=== PATIENT | female | born 1945 | race Caucasian/White ===

== ENCOUNTER 2016-11-18 20:02 | Inpatient (IN) | payer MEDICARE, BC ==
[~2016-11-18] VITALS: Ht 170.2 cm; Wt 86.7 kg
--- NOTE | ~2016-11-18 | OR ---
ADMIT: 11/18/2016 RM/LOC: 509 [id number] [id number] [address] [address] Earnest PRIEST [address] [address] [place] [address] Operative/Delivery Room Report SEX: F AGE: 71 : 1945 SURGERY DATE: 11/19/2016 SURGEON: Nayeli Nesbitt MD PREOPERATIVE DIAGNOSIS: Comminuted peritrochanteric right hip fracture. POSTOPERATIVE DIAGNOSIS: Comminuted peritrochanteric right hip fracture. PROCEDURE: Open reduction, internal fixation, right comminuted peritrochanteric hip fracture with long trochanteric femoral nail. ASSISTED BY: YNES Mann ANESTHESIA: General. ESTIMATED BLOOD LOSS: 250 mL. SPECIMEN: None. COMPLICATIONS: None. IMPLANT: Synthes trochanteric femoral nail 12 x 380 mm x 130 degree nail with a 110 mm helical blade and a 54 mm distal locking screw. DESCRIPTION OF PROCEDURE: This patient was brought to the operating room. After a satisfactory level anesthesia was achieved, she was positioned over the fracture table in the supine position. All bony prominences were well padded. Right lower extremity was placed in traction, and the fracture provisionally reduced using C-arm image intensifier. The patient had markedly comminuted fracture with the entire greater trochanter comminuted. There was a large posterior medial fragment off and although lined up well on lateral, the AP demonstrated some offset. The extremity was then prepped and draped in the usual sterile fashion. My usual incision above the greater trochanter was made little longer in order to help openly reduce the fracture. A guidewire was placed through the comminuted trochanter. The trochanteric area reamed and then a flexible guidewire was placed distally. I reamed up to a 13.5 mm and cut cortex at 13 mm and 13.5 mm, but not before that. A 380 mm nail was chosen and in order to keep the fracture reduced, I had to use a curved Crego on the calcar medially pulling the calcar to the distal fragment and holding the fracture reduced. With this held reduced, I then made a 2 cm incision for ADMIT: 11/18/2016 RM/LOC: 509 [facility] MR#: [id number] [address] [address] [address]ST [address] [place] [address] Operative/Delivery Room Report SEX: F AGE: 71 : 1945 the helical blade. I placed a guidewire up trying to keep neutral on both AP and lateral, and then reamed the lateral cortex. Then, used the step drill to ream the femoral head and neck. I seated a 110 mm helical blade and locked it proximally. This gave us a very good reduction of the proximal femur despite its marked comminution. I then used a single locking screw distally in the dynamic slot placing it most distal to facilitate compression at a later date. I confirmed position of the screw on both AP and lateral C-arm images. At this point, all wounds were irrigated. The tensor fascia was closed with interrupted #1 Vicryl. The subcutaneous tissue was fairly deep and was closed with multiple layers of 2-0 Vicryl and then the skin with naga. Sterile dressings were applied each of the three wounds and at this point, she was transferred from the operative suite in stable condition. Nayeli Nesbitt MD/ juan JOB #: [id number] CC: Tyree Daugherty, Attending Physician Tyree Daugherty, Family Physician
--- NOTE | 2016-11-21 11:42 | CO ---
ADMIT: 11/18/2016 RM/LOC: 509 [facility] MR#: [id number] [address] [address] [address] [place] [address] Consultation Report SEX: F AGE: 71 : 1945 Corrected: 11/21/2016 1045 DATE OF CONSULTATION: 11/19/2016 ATTENDING PHYSICIAN: Tyree Daugherty CONSULTING PHYSICIAN: Nayeli Nesbitt MD CHIEF COMPLAINT: Right hip pain. HISTORY: This 71-year-old lady states that she fell on her right hip as she reached for the door handle on her pickup truck and fell directly on the hip. She was brought to the emergency room where radiographs show she has a comminuted intertrochanteric right hip fracture. PAST MEDICAL HISTORY: She says she has had a breast cancer in the past. Most recent DEXA scan showed a -1 standard deviation after her treatment for her osteoporosis. Prior orthopedic history demonstrates that she had a fracture of the right proximal tibia that was treated in [place]. SOCIAL HISTORY: The patient is from [place], [place]. She is . Her accompanies her today. REVIEW OF SYSTEMS: No current respiratory, cardiac, GI, or symptoms. PHYSICAL EXAMINATION: This patient's right lower extremity is shortened and externally rotated. She has good neurocirculatory function. DIAGNOSTIC DATA: Radiographs show comminuted intertrochanteric hip fracture. IMPRESSION: Comminuted intertrochanteric hip fracture. RECOMMENDATIONS: Trochanteric femoral nailing right hip. Risks, benefits, and alternatives as well as potential complications were discussed. Nayeli Nesbitt MD/ juan JOB #: [id number] CC: Tyree B Brosz, Attending Physician Tyree Daugherty, Family Physician Corrected: 11/21/2016 1045
--- NOTE | 2016-11-22 19:09 | ER ---
ADMIT: 11/18/2016 RM/LOC: [address] [facility] MR#: [id number] [address] [address] Earnest PRIEST [address] [address] [place] [address] Emergency Room Report SEX: F AGE: 71 : 1945 DATE: 11/18/2016 HISTORY OF PRESENT ILLNESS: The patient is a 71-year-old female, who came from [place] and came with a right hip pain. The patient states today, she was walking around the pickup, and for some unknown reason, she fell on the right side and could not stand up because of the right hip pain. The patient states she did not hit the head and she had no other pains in the neck or head or other parts of the body, and for some unknown reason, the patient was turning around the pickup and fell on the right side and could not stand up. PHYSICAL EXAMINATION: HEAD AND NECK: There are no signs of trauma. VITAL SIGNS: The patient has stable vitals and open airways. GENERAL: Alert and oriented to person, place, and time. SPINE: There is no spinal midline tenderness or step-offs. NECK: Trachea is midline. CHEST: Clear bilateral. HEART: Normal heart sounds. ABDOMEN: Soft. PELVIS: Stable. HIPS: The patient keeps the right hip in the external rotation. EXTREMITIES: Visually, it looks like the right lower extremity is slightly shorter than the left lower extremity. NEUROLOGIC: The patient had normal peripheral pulses. Normal dorsal pedis and posterior tibial bilaterally and are equal too. Normal capillary filling. Sensory is equal bilaterally, and there is no open wound. IMAGING DATA: X-ray of the pelvic and the right femur was suggestive of right intertrochanteric femur fracture. DISPOSITION: The patient was admitted to the Family Medicine with a followup with Orthopedic Surgery for proper treatment. Montrell Griffiths MD/ juan JOB #: [id number] CC: Tyree Daugherty MD, Attending Physician Tyree Daugherty MD, Family Physician
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
--- NOTE | 2016-12-05 08:30 | DS ---
ADMIT: 11/18/2016 RM/LOC: 509 [facility] MR#: [id number] [address] [address] [address] [place] [address] Discharge Summary SEX: F AGE: 71 : 1945 ADMISSION DATE: 11/18/2016 DISCHARGE DATE: 11/22/2016 ADMITTING DIAGNOSES: 1. Comminuted right inter trochanteric hip fracture and lesser trochanteric fracture. 2. Hypothyroidism. 3. Hypertension. 4. Vitamin D deficiency. DISCHARGE DIAGNOSES: 1. Right comminuted intertrochanteric hip fracture and lesser trochanteric hip fracture status post open reduction and internal physical fixation postop day three. 2. Hypoxemia, improving. 3. Acute blood loss anemia status post 1 unit of packed red cells. 4. Hypothyroidism. 5. Hypertension. 6. Vitamin D deficiency. PROCEDURES: Open reduction and internal fixation of right comminuted peritrochanteric hip fracture with long trochanteric femoral nail performed by Nayeli Nesbitt MD on 11/19/2016. CONSULTATIONS: Nayeli Nesbitt MD, orthopedics, consulted 11/18/2016. HISTORY AND PHYSICAL EXAM: Ifrah is a very pleasant, 71-year-old, white female, who normally resides in [place], [place], who presented to the [facility] Emergency Department on 11/18/2016 after suffering a ground level fall at the local horse racing facility. She was out in the parking lot when she fell and broke her hip. Workup in the ER showed a comminuted right intertrochanteric hip fracture and lesser trochanteric fracture. She was admitted to the hospital for further observation and operative management of her hip fracture. On her initial exam, her vitals were stable. She was afebrile. Right lower extremity was shortened and externally rotated. Admission hemoglobin was 11.8. HOSPITAL COURSE: Ifrah was taken down to the operating room on 11/19/2016 where she underwent open reduction and internal fixation of her right intertrochanteric hip fracture. Postoperatively, she had some problems with nausea which was treated with oral antiemetics, IV antiemetics and scopolamine patch. She was able to tolerate p.o. in the subsequent two days following her surgery. She also had findings consistent with acute blood loss anemia and dropped her hemoglobin down into the low 7s. She did receive 1 unit of packed red cells in the overnight period from 11/21 into 11/22/2016 with a discharge hemoglobin of 8. She remained minimally symptomatic from this. She did have a period of confusion in the overnight period from 11/21 into 11/22 but this had cleared by the following morning of 11/22. Lastly, she was requiring 1 L of oxygen at the time of discharge. She had a negative CT scan for pulmonary ADMIT: 11/18/2016 RM/LOC: 509 [facility] MR#: [id number] [address] [place] [address] [address] [place] [address] Discharge Summary SEX: F AGE: 71 : 1945 emboli and a subsequent chest x-ray on the day of discharge was also negative. Postoperatively, Ifrah was requiring maximum assist with transfers and with ambulation. She was only to be toe-touch weightbearing with her lower extremity and was showing some impulsivity with therapy. She was not felt safe for discharge to home and skilled rehab was recommended. She indicated she would like to get her skilled rehab closer to home in [place], [place]. Initially her plan was to travel in the back of their family pickup truck unrestrained on a futon mattress. We strongly recommended against this course of action and she agreed to be transferred back to the [facility] and care home facility via ambulance. As such, she will be discharged to the [facility] for rehab. DISCHARGE MEDICATIONS: Please refer to her discharge MAR. She is on Coumadin 5 mg and at the time of discharge her INR is just a shade over 2 and is therapeutic. I have recommended that she have daily PT/INRs with those results to her local primary care provider for titration of her Coumadin. She is asked to follow up with the orthopedic clinic of her [facility] in [place], [place] within the next 2 weeks. I have asked that RT, PT and OT all work with her while she is at the nursing facility. She will have a general diet. FOLLOWUP: I have no plan to follow up with her as she will be transferred back to [place], [place], closer to home. Tyree Daugherty MD/ vdg JOB #: [id number] CC: Tyree Daugherty MD, Attending Physician Tyree Daugherty MD, Family Physician
== END 2016-11-22 13:30 | DRG 481 ==
LOC: ER 20:02 → 5MS 21:24
PROVIDERS: ADMIT Family Medicine
PROC: 0QS604Z Reposition Right Upper Femur with Internal Fixation Device, Open Approach (ICD-10-PCS; principal; 2016-11-19)
PROC: 30233N1 Transfusion of Nonautologous Red Blood Cells into Peripheral Vein, Percutaneous Approach (ICD-10-PCS; 2016-11-22)
DX: S72.141A Displaced intertrochanteric fracture of right femur, initial encounter for closed fracture (principal); D62 Acute posthemorrhagic anemia; J44.9 Chronic obstructive pulmonary disease, unspecified; S72.121A Displaced fracture of lesser trochanter of right femur, initial encounter for closed fracture; I10 Essential (primary) hypertension; W18.30XA Fall on same level, unspecified, initial encounter; E87.6 Hypokalemia; R09.02 Hypoxemia; E27.9 Disorder of adrenal gland, unspecified; E03.9 Hypothyroidism, unspecified; E55.9 Vitamin D deficiency, unspecified; Z79.82 Long term (current) use of aspirin